=== PATIENT | male | born 2000 | race Caucasian/White ===

== ENCOUNTER 2022-02-10 04:07 | Emergency (ER) | payer BC ==
[~2022-02-10] VITALS: Ht 183 cm; Wt 63.5 kg
[~2022-02-10 04:07] MED LIST: AMX500CRX PO
[2022-02-10] MEDS ORDERED: LACTATED RINGERS 1,000 ML IV ONE (04:45)
[2022-02-10 04:46] LABS: HEMATOCRIT 48 % (40-54); HEMOGLOBIN 16.3 g/dL (13.3-17.7); MEAN CORPUSCULAR HEMOGLOBIN 31 pg (25-34); MEAN CORPUSCULAR HGB CONC 34 g/dL (32-36); MEAN CORPUSCULAR VOLUME 90 fL (80-99); MEAN PLATELET VOLUME 10.1 fL (9.0-12.2); PLATELET COUNT 274 10^3/uL (130-400)
[2022-02-10 04:52] LABS: SODIUM 139 MMOL/L (135-145)
[2022-02-10 04:53] LABS: CALCIUM 9.3 MG/DL (8.5-10.1)
[2022-02-10 04:54] LABS: GLUCOSE 132 MG/DL (70-105); TOTAL PROTEIN 7.7 GM/DL (6.4-8.2)
[2022-02-10 04:55] LABS: CARBON DIOXIDE 18 MMOL/L (21-32)
[2022-02-10 04:56] LABS: BILIRUBIN,TOTAL 0.8 MG/DL (0.1-1.0)
[2022-02-10 04:58] LABS: ALKALINE PHOSPHATASE 84 U/L (40-136); CREATININE SERUM 0.98 MG/DL (0.60-1.30); GFR ESTIMATED 113
[2022-02-10 05:00] LABS: BUN/CREATININE RATIO 8
[2022-02-10 05:01] LABS: ALANINE AMINOTRANSFERASE 16 U/L (0-55); CREATINE KINASE 116 U/L (30-200)
[2022-02-10 05:28] LABS: CHLORIDE 101 MMOL/L (98-107)
[2022-02-10 05:36] LABS: SALICYLATE < 5.0 MG/DL (5.0-20.0)
[2022-02-10 05:39] LABS: ACETAMINOPHEN < 10 UG/ML (10-30)
[2022-02-10 05:39] LABS: BILIRUBIN,URINE NEGATIVE (NEGATIVE); CLARITY,URINE CLEAR; COLOR,URINE YELLOW; GLUCOSE, URINE (UA) NEGATIVE (NEGATIVE); KETONES,URINE NEGATIVE (NEGATIVE); LEUKOCYTE ESTERASE ,URINE NEGATIVE (NEGATIVE); NITRITE,URINE NEGATIVE (NEGATIVE); PROTEIN,URINE NEGATIVE (NEGATIVE)
[2022-02-10 05:52] LABS: BACTERIA,URINE NEGATIVE /HPF; SQUAMOUS EPITHELIAL CELL,UR RARE /HPF
[2022-02-10 06:07] LABS: AMPHETAMINE SCREEN, URINE NEGATIVE (NEGATIVE); BARBITURATE SCREEN URINE NEGATIVE (NEGATIVE); BENZODIAZEPINES SCREEN URINE NEGATIVE (NEGATIVE); CANNABINOID SCREEN, URINE POSITIVE (NEGATIVE); COCAINE SCREEN URINE POSITIVE (NEGATIVE); METHADONE STAT NEGATIVE (NEGATIVE); OPIATE SCREEN URINE NEGATIVE (NEGATIVE); OXYCODONE STAT NEGATIVE (NEGATIVE); PROPOXYPHENE STAT NEGATIVE (NEGATIVE); TRICYCLIC ANTIDEPRESSANTS SCRE NEGATIVE (NEGATIVE)
[2022-02-10] MEDS ORDERED: ONDANSETRON 4 MG/2 ML (SDV) Z0FRAN IVP ONE (06:30)
[2022-02-10] MEDS ORDERED: KCL 10 MEQ TAB (MICRO K) PO ONE (07:00)
--- NOTE | 2022-02-10 07:12 | ED General ---
General Chief Complaint: Substance Abuse Stated Complaint: HIGH HR,USED DRUGS,FEELING LIKE PASSING OUT Nursing Triage Note: Pt arrives per POV w/ friend stating that "he did a bunch of drugs." Ambulatory to room, and attached to hall monitor. States he took a bunch of Cocaine. "When I do coke I usually over do it." Source of Information: Patient Exam Limitations: No Limitations History of Present Illness Date Seen by Provider: Feb 10, 2022 Time Seen by Provider: 04:37 Initial Comments This 21-year-old young man presents to the emergency room with complaints of racing heart and anxiousness after consuming alcohol and snorting a significant amount of cocaine. He denies any chest pain. Allergies and Home Medications Allergies Coded Allergies: No Known Drug Allergies (Verified , 07/30/08) Patient Home Medication List Home Medication List Reviewed: Yes Amoxicillin (Rx-Polymox Capsule) 500 Mg Cap, 500 MG PO BID, (Reported) Entered as Reported by: MORALES VARGAS on 03/17/13 2824 Review of Systems Review of Systems Constitutional: no symptoms reported EENTM: no symptoms reported Respiratory: no symptoms reported Cardiovascular: see HPI Gastrointestinal: no symptoms reported Genitourinary: no symptoms reported Musculoskeletal: no symptoms reported Skin: no symptoms reported Psychiatric/Neurological: See HPI Hematologic/Lymphatic: No Symptoms Reported Immunological/Allergic: no symptoms reported Past Hnhoejo-[id number]-Amcahz Hx Patient Social History Tobacco Use?: No Use of E-Cig and/or Vaping dev: Yes Use of E-Cig and/or Vaping Jairo: Current Everyday User Substance use?: Yes Substance type: Marijuana, Other (Cocaine) Additional substance use comme: Cocaine Substance frequency: Couple times a week Alcohol Use?: Yes Alcohol type: Beer, Hard Liquor Alcohol Frequency: Couple times a week Past Medical History Surgeries: Yes Abdominal (Hernia repair), Appendectomy, Orthopedic (Bone cyst from right arm, left hand trauma) Respiratory: No Cardiac: No Neurological: No Reproductive Disorders: No Sexually Transmitted Disease: No Genitourinary: No Gastrointestinal: No Musculoskeletal: No Endocrine: No HEENT: No Cancer: No Psychosocial: Yes (Polysubstance abuse) Integumentary: No Physical Exam Vital Signs Vital Signs - First Documented 02/10/22 04:15 Temp 36.4 Pulse 151 Resp 20 B/P (MAP) 151/99 (116) Pulse Ox 100 O2 Delivery Room Air Capillary Refill : Less Than 3 Seconds Height, Weight, BMI Height: '" Weight: lbs. oz. kg; 18.00 BMI Method:Stated General Appearance: WD/WN, Anxious, Thin HEENT: PERRL/EOMI, Normal ENT Inspection, Other (Scleral injection) Neck: Normal Inspection Respiratory: Lungs Clear, Normal Breath Sounds, No Accessory Muscle Use Cardiovascular: No Edema, No Murmur, Tachycardia (Regular) Gastrointestinal: Normal Bowel Sounds, Non Tender, Soft Extremity: Normal Inspection, No Pedal Edema Neurologic/Psychiatric: Alert, Oriented x3, No Motor/Sensory Deficits, digital campaign manager II- XII Norm as Tested, Other (Anxiety) Skin: Warm/Dry, Other (Flushed, warm to touch) Progress/Results/Core Measures Suspected Sepsis SIRS Temperature: Pulse: 151 Respiratory Rate: 20 Laboratory Tests 02/10/22 04:20: White Blood Count 7.0 Blood Pressure 151 /99 Mean: 116 Laboratory Tests 02/10/22 04:20: Creatinine 0.98, Platelet Count 274, Total Bilirubin 0.8 Results/Orders Lab Results Laboratory Tests Test 02/10/22 04:20 02/10/22 05:30 Range/Units White Blood Count 7.0 4.3-11.0 10^3/uL Red Blood Count 5.33 4.30-5.52 10^6/uL Hemoglobin 16.3 13.3-17.7 g/dL Hematocrit 48 40-54 % Mean Corpuscular Volume 90 80-99 fL Mean Corpuscular Hemoglobin 31 25-34 pg Mean Corpuscular Hemoglobin Concent 34 32-36 g/dL Red Cell Distribution Width 13.4 10.0-14.5 % Platelet Count 274 130-400 10^3/uL Mean Platelet Volume 10.1 9.0-12.2 fL Sodium Level 139 135-145 MMOL/L Potassium Level 3.0 L 3.6-5.0 MMOL/L Chloride Level 101 98-107 MMOL/L Carbon Dioxide Level 18 L 21-32 MMOL/L Anion Gap 20 H 5-14 MMOL/L Blood Urea Nitrogen 8 7-18 MG/DL Creatinine 0.98 0.60-1.30 MG/DL Estimat Glomerular Filtration Rate 113 BUN/Creatinine Ratio 8 Glucose Level 132 H 70-105 MG/DL Calcium Level 9.3 8.5-10.1 MG/DL Corrected Calcium 8.5-10.1 MG/DL Total Bilirubin 0.8 0.1-1.0 MG/DL Aspartate Amino Transf (AST/SGOT) 18 5-34 U/L Alanine Aminotransferase (ALT/SGPT) 16 0-55 U/L Alkaline Phosphatase 84 40-136 U/L Total Creatine Kinase 116 30-200 U/L Total Protein 7.7 6.4-8.2 GM/DL Albumin 5.0 H 3.2-4.5 GM/DL Salicylates Level < 5.0 L 5.0-20.0 MG/DL Acetaminophen Level < 10 L 10-30 UG/ML Serum Alcohol 76 H <10 MG/DL Urine Color YELLOW Urine Clarity CLEAR Urine pH 6.0 5-9 Urine Specific [place] <=1.005 1.016-1.022 Urine Protein NEGATIVE NEGATIVE Urine Glucose (UA) NEGATIVE NEGATIVE Urine Ketones NEGATIVE NEGATIVE Urine Nitrite NEGATIVE NEGATIVE Urine Bilirubin NEGATIVE NEGATIVE Urine Urobilinogen 0.2 < = 1.0 MG/DL Urine Leukocyte Esterase NEGATIVE NEGATIVE Urine RBC (Auto) NEGATIVE NEGATIVE Urine RBC NONE /HPF Urine WBC NONE /HPF Urine Squamous Epithelial Cells RARE /HPF Urine Crystals NONE /LPF Urine Bacteria NEGATIVE /HPF Urine Casts NONE /LPF Urine Mucus NEGATIVE /LPF Urine Culture Indicated NO Urine Opiates Screen NEGATIVE NEGATIVE Urine Oxycodone Screen NEGATIVE NEGATIVE Urine Methadone Screen NEGATIVE NEGATIVE Urine Propoxyphene Screen NEGATIVE NEGATIVE Urine Barbiturates Screen NEGATIVE NEGATIVE Ur Tricyclic Antidepressants Screen NEGATIVE NEGATIVE Urine Phencyclidine Screen NEGATIVE NEGATIVE Urine Amphetamines Screen NEGATIVE NEGATIVE Urine Methamphetamines Screen NEGATIVE NEGATIVE Urine Benzodiazepines Screen NEGATIVE NEGATIVE Urine Cocaine Screen POSITIVE H NEGATIVE Urine Cannabinoids Screen POSITIVE H NEGATIVE My Orders Orders - JAI MANLEY MD Acetaminophen (02/10/22 04:37) Alcohol (02/10/22 04:37) Cbc No Diff (02/10/22 04:37) Comprehensive Metabolic Panel (02/10/22 04:37) Creatine Kinase (02/10/22 04:37) Drug Screen Stat (Urine) (02/10/22 04:37) Salicylate (02/10/22 04:37) Ua Culture If Indicated (02/10/22 04:37) Ed Iv/Invasive Line Start (02/10/22 04:37) Lactated Ringers (Lr 1000 Ml Iv Solution (02/10/22 04:45) Ekg Tracing (02/10/22 04:37) Monitor-Rhythm Ecg Trace Only (02/10/22 04:37) Ondansetron Injection (Zofran Injectio (02/10/22 06:30) Potassium Chloride (Tablet) (Klor Con Ta (02/10/22 07:00) Lorazepam Injection (Ativan Injection) (02/10/22 07:15) Medications Given in ED Vital Signs/I&O 02/10/22 02/10/22 04:15 07:41 Temp 36.4 Pulse 151 96 Resp 20 18 B/P (MAP) 151/99 (116) 118/60 Pulse Ox 100 99 O2 Delivery Room Air Room Air Capillary Refill : Less Than 3 Seconds Blood Pressure Mean: 116 Progress Note : Progress Note Patient was hydrated with a liter of LR. Tachycardia was trending downward. He was given Ativan to further treat the tachycardia which was notably effective. Potassium was replaced orally. Patient was subjectively feeling improved at the time of discharge. ECG Initial ECG Impression Date: Feb 10, 2022 Initial ECG Impression Time: 04:52 Initial ECG Rate: 116 Initial ECG Rhythm: S.Tach Comment Sinus tachycardia with possible LVH. No ST elevation or depression. No significant abnormal intervals. Departure Impression Primary Impression: Tachycardia Additional Impressions: Polysubstance abuse Anxiety Hypokalemia Disposition: 01 HOME, SELF-CARE Condition: Stable Departure-Patient Inst. Decision time for Depature: 07:07 Referrals: IRMA BRAGG (PCP/Family) Primary Care Physician Patient Instructions: ALCOHOL AND SUBSTANCE ABUSE Add. Discharge Instructions: Discontinue use of illicit substances such as cocaine, marijuana, etc. Avoid alcohol use as well. Follow-up with your primary care provider soon as possible. Reviewed the attached printed material provided about drug and alcohol use. Eat a well-balanced diet and drink plenty of clear liquids. Call with questions or concerns. Return to the ER if you have worsening symptoms. All discharge instructions reviewed with patient and/or family. Voiced understanding. JAI MANLEY MD Feb 10, 2022 07:12
[2022-02-10] MEDS ORDERED: LORazepam INJ 2 MG/ML (ATIVAN) VIAL IVP ONE (07:15)
[2022-02-10 07:41] VITALS: BP 118/60
== END 2022-02-10 07:57 | disposition home or self-care (01) ==
LOC: EDUNIT# 04:07 → ER 04:10
DX: F41.9 Anxiety disorder, unspecified (principal); E87.6 Hypokalemia; F12.10 Cannabis abuse, uncomplicated; F14.10 Cocaine abuse, uncomplicated; F17.290 Nicotine dependence, other tobacco product, uncomplicated
CPT/HCPCS: 80053; 80306; 81000; 82550; 85027; 93005; 93041; 99284; G0480 ×3; 36415; 80320; 80329